=== PATIENT | female | born 1985 | race Asian ===

== ENCOUNTER 2024-07-31 14:48 | Emergency (ER) | payer MEDICAID ==
[~2024-07-31] VITALS: Ht 160 cm; Wt 67.1 kg
[2024-07-31 14:56] VITALS: O2SAT 100
[2024-07-31 15:31] LABS: BASOPHILS % 0.4 % (0.0-2.0); EOSINOPHILS % 1.9 % (0.0-5.0); HEMATOCRIT. 31.5 % (36.0-48.0); HEMOGLOBIN. 9.4 g/dL (12.0-16.0); LYMPHOCYTES % 19.4 % (20.0-50.0); MEAN CORPUSCULAR HEMOGLOBIN 18.8 pg (28.0-32.0); MEAN CORPUSCULAR HGB CONC 29.7 g/dL (31.0-37.0); MEAN CORPUSCULAR VOLUME 63.1 fL (81.0-99.0); MEAN PLATELET VOLUME 9.4 fl (7.4-10.4); NEUTROPHILS % 70.3 % (40.0-76.0); PLATELET 317 x1000/uL (130-400); RED BLOOD CELL COUNT 4.99 mill/uL (4.2-5.4); RED CELL DISTRIBUTION WIDTH 18.6 % (11.6-14.6); WHITE BLOOD COUNT 8.8 x1000/uL (4.5-11.0)
[2024-07-31 15:33] LABS: ADD RBC MORPHOLOGY YES; DIFFERENTIAL COMMENT 1
[2024-07-31 15:39] LABS: CHLORIDE 106 mEq/L (98-107); SODIUM 139 mEq/L (136-145)
[2024-07-31 15:40] LABS: CALCIUM 9.6 mg/dL (8.7-10.4); CARBON DIOXIDE 24 mEq/L (21-32)
[2024-07-31 15:45] LABS: CREATININE 0.5 mg/dL (0.6-1.0); GLUCOSE 94 mg/dL (70-105); UREA NITROGEN BLOOD 7 mg/dL (9-23)
[2024-07-31 15:48] LABS: HCG SCREEN POSITIVE
[2024-07-31 15:50] LABS: UCG SCREEN POSITIVE
[2024-07-31 15:51] LABS: UCG KIT LOT# 907863
[2024-07-31 17:49] LABS: ANISOCYTOSIS 1+; HYPOCHROMASIA 3+; MICROCYTOSIS 3+; OVALOCYTES 1+; PLATELET ESTIMATE NORMAL
[2024-07-31 21:01] VITALS: BP 120/80; PULSE 102; RESP 16; TEMP 36.7; O2SAT 100
== END 2024-07-31 20:59 | disposition home or self-care (01) ==
LOC: ER 14:48
DX: O34.11 Maternal care for benign tumor of corpus uteri, first trimester (principal); D25.9 Leiomyoma of uterus, unspecified; Z3A.01 Less than 8 weeks gestation of pregnancy
CPT/HCPCS: 36415; 76801; 80048; 81025; 84703; 85025; 86850; 86900; 99284

== ENCOUNTER 2024-11-22 00:55 | Emergency (ER) | payer MEDICAID ==
[~2024-11-22] VITALS: Ht 160 cm; Wt 71.0 kg
[2024-11-22 01:15] VITALS: O2SAT 99
[2024-11-22 01:59] LABS: BASOPHILS % 0.2 % (0.0-2.0); EOSINOPHILS % 1.0 % (0.0-5.0); HEMATOCRIT. 26.2 % (36.0-48.0); HEMOGLOBIN. 8.2 g/dL (12.0-16.0); LYMPHOCYTES % 16.8 % (20.0-50.0); MEAN PLATELET VOLUME 9.0 fl (7.4-10.4); MONOCYTES % 6.2 % (2.0-8.0); NEUTROPHILS % 75.8 % (40.0-76.0); PLATELET 338 x1000/uL (130-400); RED BLOOD CELL COUNT 3.95 mill/uL (4.2-5.4); RED CELL DISTRIBUTION WIDTH 25.4 % (11.6-14.6)
[2024-11-22 02:03] LABS: CLARITY URINE CLOUDY (CLEAR); COLOR URINE YELLOW (YELLOW); GLUCOSE URINE NEGATIVE (NEGATIVE); KETONES URINE NEGATIVE (NEGATIVE); LEUKOCYTE ESTERASE URINE NEGATIVE (NEGATIVE); NITRITE URINE NEGATIVE (NEGATIVE); OCCULT BLOOD URINE NEGATIVE (NEGATIVE); PH URINE 6.5 (4.5-8.0); PROTEIN URINE NEGATIVE (NEGATIVE); SPECIFIC GRAVITY URINE 1.009 (1.005-1.030); UROBILINOGEN URINE 0.2 E.U./dL (0.2-1.0)
[2024-11-22 02:04] LABS: ADD RBC MORPHOLOGY YES
[2024-11-22 02:09] LABS: INR 0.9
[2024-11-22 02:10] LABS: CREATININE 0.5 mg/dL (0.6-1.0); UREA NITROGEN BLOOD 7 mg/dL (9-23)
[2024-11-22 02:12] LABS: ASPARTATE AMINOTRANSFERASE 12 IU/L (<34); BILIRUBIN DIRECT < 0.1 mg/dL (<=3.0); BILIRUBIN TOTAL 0.2 mg/dL (0.1-1.0); PROTEIN TOTAL 6.6 g/dL (6.0-8.3)
[2024-11-22 02:18] LABS: BACTERIA URINE 3+; RBC URINE NONE SEEN /hpf (0-2); SQUAMOUS EPITHELIAL CELL URINE NONE SEEN /lpf (RARE/1+); WBC URINE 0-2 /hpf (0-2)
[2024-11-22 02:38] LABS: PLATELET ESTIMATE NORMAL
[2024-11-22] MEDS ORDERED: NITR-87 MT (03:06)
[2024-11-22] MEDS: POTASSIUM CHLORIDE 20MEQ TABLET SR PO NR (03:09)
[2024-11-22] MEDS: NITROFURANTOIN 100MG M/M CAPSULE PO NR (03:10)
[2024-11-22 03:31] VITALS: BP 131/77; PULSE 86; RESP 23; TEMP 36.7; O2SAT 99
== END 2024-11-22 03:35 | disposition home or self-care (01) ==
LOC: ER 00:55
DX: O99.012 Anemia complicating pregnancy, second trimester (principal); D50.9 Iron deficiency anemia, unspecified; N93.8 Other specified abnormal uterine and vaginal bleeding; Z36.86 Encounter for antenatal screening for cervical length; Z3A.24 24 weeks gestation of pregnancy
CPT/HCPCS: 80076; 80048; 81003; 85025; 85610; 85730; 86850; 86900; 86901; 36415; 76805; 76817; 99284; Z7610